=== PATIENT | female | born 1985 | race Caucasian/White ===

== ENCOUNTER 2017-10-30 17:23 | Emergency (ER) | payer OTHER, MEDICAID, SELFPAY ==
[2017-10-30 17:23] VITALS: BP 137/89; PULSE 83; RESP 16; TEMP 36.6; O2SAT 98; BMI 30.8
--- NOTE | 2017-10-30 17:39 | ED.VISSUMM ---
- ER Visit Summary Date of Service: 10/30/17 Chief Complaint: Right elbow pain History of Present Illness: The patient is a 32 F who tripped and fell at work. She states she fell on her outstretched arm. She felt a pop in her right elbow and now has focal pain to the right elbow. She is right-hand dominant. She also landed on her knees and has mild pain to the right knee. She did not strike her head. Physical Examination: Vital signs are unremarkable. Head neck examination is unremarkable with no sign of trauma. She has no C-spine tenderness. Heart is regular rate and rhythm. Lung sounds are clear. Abdomen is soft nontender. Right upper extremity examination reveals tenderness palpation on the ulnar aspect of the right elbow. There is no tenderness over the radial head. She does have increased pain with pronation and supination. She has no tenderness at the shoulder or the wrist. Left upper extremity examination is unremarkable with full range of motion. Right lower extremity examination reveals mild tenderness of the anterior right knee. She has full range of motion without difficulty. Test Results: Right elbow x-rays reveal a large elbow joint effusion compatible with fracture. There is a questionable tiny fracture line at the radial head. Emergency Department Course and Treatment: Test results are discussed with the patient. She is placed in a long posterior splint and a sugar tong. Following splint application she is good cap refill distally. She is given Alpine for pain. Should be on a prescription for the same. She will be referred to Dr. Dougherty for follow-up along with [facility]. Treatment Plan: [] Disposition: Discharge Impression: Right elbow fracture status post mechanical fall This note was generated with [employer] dictation software. It may contain incorrect words, spelling, and punctuation that were not noted in review of the chart prior to signing ED Disposition - Plan for ED Patient: Chief Complaint: Upper Extremity Injury Referrals: Claudio Vo MD [Primary Care Provider] -
--- NOTE | 2017-10-30 17:40 | RAD_ITS ---
XR Elbow Min 3 Views INDICATION: RIPPED AND FELL AT WORK, LANDED ON RIGHT ELBOW, CONTINUED PAIN. COMPARISON: None TECHNIQUE: 3 views of the right elbow FINDINGS: There is a large elbow joint effusion with displacement of the fat pad on the lateral view. There is a questionable small lucent line at the radial head, only seen on the oblique view. The osseous structures appear otherwise intact. RAD/Elbow min 3 Views IMPRESSION: Large elbow joint effusion compatible with fracture. Questionable tiny fracture line at the radial head. Consider follow-up in 2 weeks for reevaluation. at 1758 Reported and signed by: Diana Felix MD Electronically Signed: Diana Felix MD at 16:56 EDT Tel , Service support ,
--- NOTE | 2017-10-30 18:22 | ED.DEP ---
ED Disposition - Plan for ED Patient: Disposition: Home or Assisted Living Chief Complaint: Upper Extremity Injury Instructions: ED Fx Elbow Prescriptions: Hydrocodone Bitart/Apap 5-325 [[place] 5/325] 1 - 2 tablet PO Q6H PRN PRN 5 Days #20 tablet PRN Reason: Pain Referrals: Carmencita Dougherty DO [STAFF PHYSICIAN] - 3-5 Days [facility] [GROUP OF PHYSICIANS] - 2 Days
[2017-10-30 18:25] VITALS: BP 137/78; PULSE 81; RESP 18; O2SAT 97
--- NOTE | 2017-10-30 18:25 | DCINST.ED_ITS ---
ED Disposition - Plan for ED Patient: Disposition: Home or Assisted Living Chief Complaint: Upper Extremity Injury Instructions: ED Fx Elbow Prescriptions: Hydrocodone Bitart/Apap 5-325 [[place] 5/325] 1 - 2 tablet PO Q6H PRN PRN 5 Days # 20 tablet PRN Reason: Pain Referrals: Carmencita Dougherty DO [STAFF PHYSICIAN] - 3-5 Days [facility] [GROUP OF PHYSICIANS] - 2 Days
[2017-10-30] MEDS: Ondansetron ODT 4 MG Tablet PO (18:53)
[2017-10-30] MEDS: HYDROcodone Bitartrate/Apap 5/325 Tablet PO ×2 (18:53→18:54)
--- NOTE | 2017-10-30 19:03 | NURSING ---
1830-DR. MAGAÑA IN TO APPLY SPLINT WITH [employer]PER[employer]. PT MARK ANTHONY WELL. [facility] HERE FOR SPECIMAN COLLECTION PER PROTOCOL. SLING APPLIED AND ARM UP ON PILLOW.
== END 2017-10-30 19:15 | disposition home or self-care (01) ==
PROVIDERS: Emergency Provider Emergency Medicine; Family Provider Family Medicine; PCP Family Medicine
DX: S42.401A Unspecified fracture of lower end of right humerus, initial encounter for closed fracture (principal); M25.421 Effusion, right elbow; W01.0XXA Fall on same level from slipping, tripping and stumbling without subsequent striking against object, initial encounter; Y93.89 Activity, other specified; Y92.89 Other specified places as the place of occurrence of the external cause; Y99.0 Civilian activity done for income or pay
CPT/HCPCS: 29105; 73080; 99284

== ENCOUNTER → 2017-11-01 11:33 | Outpatient (CLI) | payer OTHER, SELFPAY ==
--- NOTE | 2017-11-01 11:36 | RAD_ITS ---
STUDY: X-RAY - LEFT ELBOW REASON FOR EXAM: Female, 32 years old. Fall 2 days ago. Posterior lateral elbow pain. TECHNIQUE: 3 view(s) of the elbow. COMPARISON: None. FINDINGS: Normal visualized humerus, radius and ulna. Normal radiocapitellar and ulnotrochlear articulations. There is no visualized fracture or dislocation. There is mild elevation of the fat pads and the possibility of an occult fracture cannot be ruled out. The soft tissue structures are unremarkable. RAD/Elbow min 3 Views IMPRESSION: Joint effusion effusion suggesting occult fracture. No visualized fracture is noted. Electronically Signed: Yaw Tinoco DO at 11:59 EDT Tel [phone], Service support ,
== END ==
PROVIDERS: Family Provider Family Medicine; PCP Family Medicine; Visit Provider Physician Assistant Surgical
DX: S50.02XA Contusion of left elbow, initial encounter (principal)
CPT/HCPCS: 73080

== ENCOUNTER → 2017-11-03 13:17 | Outpatient (CLI) | payer OTHER, SELFPAY ==
--- NOTE | 2017-11-03 13:19 | RAD_ITS ---
STUDY: X-RAY - RIGHT RADIUS AND ULNA REASON FOR EXAM: Female, 32 years old. Fall. Pain. TECHNIQUE: 2 view(s) of the forearm. COMPARISON: None. FINDINGS: There is no demonstrated soft tissue swelling. Normal visualized radius. Normal visualized ulna. RAD/Forearm 2 Views IMPRESSION: Normal x-ray examination of the radius and ulna. Electronically Signed: Ramiro Romo MD at 12:43 EDT , Service support ,
== END ==
PROVIDERS: Family Provider Family Medicine; PCP Family Medicine; Visit Provider Orthopaedic Surgery
DX: M25.521 Pain in right elbow (principal)
CPT/HCPCS: 73090